=== PATIENT | female | born 1995 | race Caucasian/White ===

== ENCOUNTER 2017-06-02 15:19 | Emergency (ER) | payer OTHER ==
[~2017-06-02] VITALS: Ht 160 cm; Wt 74.8 kg
[2017-06-02 15:24] VITALS: BP 143/83
--- NOTE | 2017-06-02 16:03 | NUR ---
PATIENT TO BED 6 AT THIS TIME.
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
[2017-06-02] MEDS ORDERED: IBUPROFEN 800 MG TAB PO ONE (16:35)
[2017-06-02 16:56] VITALS: BP 119/71
--- NOTE | 2017-06-02 16:56 | NUR ---
Patient discharged with v/s stable. Written and verbal after care instructions given and explained. Patient alert, oriented and verbalized understanding of instructions. Ambulatory with by parent. All questions addressed prior to discharge. ID band removed. Patient advised to follow up with PMD. Rx of MOTRIN given. Patient educated on indication of medication including possible reaction and side effects. Opportunity to ask questions provided and answered.
== END 2017-06-02 16:56 | disposition home or self-care (01) ==
LOC: MED 15:19
DX: S40.012A Contusion of left shoulder, initial encounter (principal); R03.0 Elevated blood-pressure reading, without diagnosis of hypertension; V49.49XA Driver injured in collision with other motor vehicles in traffic accident, initial encounter; Y93.89 Activity, other specified; Y92.488 Other paved roadways as the place of occurrence of the external cause; Y99.8 Other external cause status
CPT/HCPCS: 72040; 73030; 99284

== ENCOUNTER 2022-04-21 19:10 | Emergency (ER) | payer OTHER ==
[~2022-04-21] VITALS: Ht 160 cm; Wt 68.0 kg
[2022-04-21 19:29] VITALS: BP 132/86
--- NOTE | 2022-04-21 19:35 | NUR ---
TO LOBBY FOLLOWING TRIAGE
[2022-04-21] MEDS ORDERED: IBUP-2213 PO (20:00)
[2022-04-21 21:00] VITALS: BP 132/86
== END 2022-04-21 21:00 | disposition home or self-care (01) ==
LOC: MED 19:10
DX: M25.512 Pain in left shoulder (principal); G89.29 Other chronic pain; Z79.899 Other long term (current) drug therapy
CPT/HCPCS: 99282